=== PATIENT | female | born 1960 | race Caucasian/White ===

== ENCOUNTER 2022-10-17 09:06 | Inpatient (IN) | payer BC ==
[2022-10-17] MEDS ORDERED: Ascorbic Acid 500 mg Chewable Tablet ONE (09:29)
[2022-10-17] MEDS ORDERED: Aspirin 325 MG TAB ONE (09:29)
[2022-10-17 09:55] LABS: #Basophils 0.1 10x3/uL (0.0-0.2); #Eosinphils 0.2 10x3/uL (0.0-0.5); #Monocytes 0.8 10x3/uL (0.0-1.1); #Neutrophils 6.4 10x3/uL (1.5-8.4); %Basophils 0.7 % (0.0-2.0); %Eosinophils 1.9 % (0.0-6.0); %Lymphocytes 13.3 % (18.0-47.0); %Neutrophils 74.6 % (40.0-75.0); Hemoglobin 11.4 g/dL (12.0-15.5); Mean Corpuscular HGB CONC 32.2 g/dL (32.0-36.0); Mean Corpuscular Hemoglobin 30.7 pg (27.0-33.0); Mean Corpuscular Volume 95.4 fl (81.6-98.3); Mean Platelet Volume 12.3 fl (7.4-10.4); Platelet Count 275 10x3/uL (150-450); RBC Distribution Width 13.6 % (11.5-14.5); Red Blood Cell (RBC) Count 3.71 10x6/uL (3.90-5.03); White Blood Cell (WBC) Count 8.5 10x3/uL (3.5-10.5)
[2022-10-17 10:04] LABS: Prothrombin Time 10.8 sec (9.5-12.1)
[2022-10-17 10:14] LABS: ALT (SGPT) 13 U/L (8-55); AST (SGOT) 15 U/L (5-34); Alkaline Phosphatase 89 U/L (40-110); Anion Gap 15 mmol/L (10-20); BUN (Urea Nitrogen) 26 mg/dL (9.8-20.1); Bilirubin, Total 0.4 mg/dL (0.2-1.2); Calc. Creatinine Clearance 0 mL/min (70-130); Calcium 9.6 mg/dL (7.8-10.44); Carbon Dioxide 21 mmol/L (23-31); Chloride 106 mmol/L (98-107); Estimated GFR 29; Globulin 3.2 g/dL (2.4-3.5); Glucose 145 mg/dL (80-115); Potassium 4.4 mmol/L (3.5-5.1); Protein, Total 7.2 g/dL (5.8-8.1); Sodium 138 mmol/L (136-145)
[2022-10-17] MEDS ORDERED: FLU VACC QS2022-23(6MO UP)/PF 60 MCG/0.5 ML SYRINGE IM ONE (10:45)
[2022-10-17] MEDS ORDERED: Phenylephrine 40 MG/NS 250 ML 250 ML ONE (12:38)
[2022-10-17] MEDS ORDERED: Lidocaine 1% (PF) 30 ML VIAL ONE (12:48)
[2022-10-17] MEDS ORDERED: Heparin 10,000 UNITS/ 10 ML VIAL ONE (12:49)
[2022-10-17] MEDS ORDERED: Atropine Sulfate 0.4 mg/1 ml Vial ONE ×2 (13:06→14:01)
[2022-10-17] MEDS ORDERED: PHENYLEPHRINE-NS 100 MCG/ML 10 ML SYRINGE ONE (13:07)
[2022-10-17] MEDS ORDERED: Fentanyl 100 MCG/2 ML VIAL ONE (13:18)
[2022-10-17] MEDS ORDERED: Midazolam HCl 2 mg/2 ml Vial ONE (13:19)
[2022-10-17] MEDS ORDERED: Sodium Chloride 0.9% 200 ML IV PRN (14:46)
[2022-10-17] MEDS ORDERED: Nitroglycerin 0.4 MG TAB (25 Tab Bottle) SL PRN (14:46)
[2022-10-17] MEDS ORDERED: Acetaminophen/Codeine 30-300mg Tablet PO PRN ×2 (14:46)
[2022-10-17] MEDS ORDERED: Sodium Chloride 0.9% 1,000 ML IV SCH (15:00)
[2022-10-17 15:46] VITALS: BMI 37.4
[2022-10-17] MEDS ORDERED: Iopamidol 300 61% 100 ML VIAL FS ONE (15:52)
[2022-10-17] MEDS: Phenylephrine 40 MG/NS 250 ML 40 MG in Premix Bag 1 BAG IVPB SCH (19:00)
[2022-10-17] MEDS: TICAGRELOR 90 MG TABLET PO SCH (20:11)
[2022-10-17] MEDS: Apixaban 2.5 MG TAB PO SCH (20:11)
[2022-10-17] MEDS: Furosemide 20 MG TAB PO SCH (20:13)
[2022-10-17] MEDS: Carvedilol 3.125 MG TAB PO SCH (20:13)
[2022-10-18] MEDS: Phenylephrine 40 MG/NS 250 ML 40 MG in Premix Bag 1 BAG IVPB SCH ×2 (01:49→22:30)
[2022-10-18 04:23] VITALS: TEMP 97.8
[2022-10-18 07:18] LABS: Hemoglobin 9.8 g/dL (12.0-15.5); Mean Corpuscular HGB CONC 31.1 g/dL (32.0-36.0); Mean Corpuscular Hemoglobin 30.5 pg (27.0-33.0); Mean Corpuscular Volume 98.1 fl (81.6-98.3); Mean Platelet Volume 12.6 fl (7.4-10.4); Platelet Count 254 10x3/uL (150-450); RBC Distribution Width 13.9 % (11.5-14.5); Red Blood Cell (RBC) Count 3.21 10x6/uL (3.90-5.03); White Blood Cell (WBC) Count 8.9 10x3/uL (3.5-10.5)
[2022-10-18 07:27] LABS: Anion Gap 15 mmol/L (10-20); BUN (Urea Nitrogen) 30 mg/dL (9.8-20.1); Calc. Creatinine Clearance 46 mL/min (70-130); Calcium 8.5 mg/dL (7.8-10.44); Carbon Dioxide 17 mmol/L (23-31); Chloride 112 mmol/L (98-107); Estimated GFR 27; Glucose 124 mg/dL (80-115); Potassium 4.9 mmol/L (3.5-5.1); Sodium 139 mmol/L (136-145)
[2022-10-18] MEDS: Apixaban 2.5 MG TAB PO SCH ×2 (08:16→20:16)
[2022-10-18] MEDS: Furosemide 20 MG TAB PO SCH (08:16)
[2022-10-18] MEDS: TICAGRELOR 90 MG TABLET PO SCH ×2 (08:16→20:16)
[2022-10-18] MEDS: Lantus 1000 UNITS/10 ML VIAL SC SCH (08:48)
[2022-10-18] MEDS: Carvedilol 3.125 MG TAB PO SCH (08:50)
[2022-10-18 08:51] VITALS: BP 115/68
[2022-10-18] MEDS: Pioglitazone HCl 15 MG TAB PO SCH (08:51)
[2022-10-18] MEDS: Lisinopril 10 MG TAB PO SCH (08:51)
[2022-10-18] MEDS: Sodium Chloride 0.9% 1,000 ML IV SCH ×2 (09:29→20:16)
[2022-10-19] MEDS: Sodium Chloride 0.9% 1,000 ML IV SCH (06:34)
[2022-10-19] MEDS: Pioglitazone HCl 15 MG TAB PO SCH (08:41)
[2022-10-19] MEDS: Lisinopril 10 MG TAB PO SCH (08:42)
[2022-10-19] MEDS: Lantus 1000 UNITS/10 ML VIAL SC SCH (08:42)
[2022-10-19] MEDS: TICAGRELOR 90 MG TABLET PO SCH (08:42)
[2022-10-19] MEDS: Apixaban 2.5 MG TAB PO SCH (08:42)
== END 2022-10-19 12:14 | disposition home or self-care (01) | DRG 35 ==
LOC: CSHSDC 09:06 → CSHIMCU 15:30
PROVIDERS: ADMIT Specialist; ATTEND Specialist
PROC: 037K3DZ Dilation of Right Internal Carotid Artery with Intraluminal Device, Percutaneous Approach (ICD-10-PCS; principal; 2022-10-17)
PROC: B41F1ZZ Fluoroscopy of Right Lower Extremity Arteries using Low Osmolar Contrast (ICD-10-PCS; 2022-10-17)
PROC: B3151ZZ Fluoroscopy of Bilateral Common Carotid Arteries using Low Osmolar Contrast (ICD-10-PCS; 2022-10-17)
DX: I65.23 Occlusion and stenosis of bilateral carotid arteries (principal); T82.856A Stenosis of peripheral vascular stent, initial encounter; E11.51 Type 2 diabetes mellitus with diabetic peripheral angiopathy without gangrene; I95.81 Postprocedural hypotension; R00.1 Bradycardia, unspecified; I25.118 Atherosclerotic heart disease of native coronary artery with other forms of angina pectoris; I87.2 Venous insufficiency (chronic) (peripheral); E78.2 Mixed hyperlipidemia; I70.1 Atherosclerosis of renal artery; E11.22 Type 2 diabetes mellitus with diabetic chronic kidney disease; N18.2 Chronic kidney disease, stage 2 (mild); I12.9 Hypertensive chronic kidney disease with stage 1 through stage 4 chronic kidney disease, or unspecified chronic kidney disease; Z79.4 Long term (current) use of insulin; Z88.8 Allergy status to other drugs, medicaments and biological substances; Z95.820 Peripheral vascular angioplasty status with implants and grafts; Z95.5 Presence of coronary angioplasty implant and graft; Z79.84 Long term (current) use of oral hypoglycemic drugs; Z91.14 Patient's other noncompliance with medication regimen; Z79.899 Other long term (current) drug therapy; Z91.040 Latex allergy status; Z86.73 Personal history of transient ischemic attack (TIA), and cerebral infarction without residual deficits
CPT/HCPCS: 36222; 36227; 36415; 37215; 75710; 80048; 80053; 85025; 85027; 85610; 93005; 93010; 94760; 94762; 99152; 99153; C1760; C1769; C1876; C1884; C1894; J0461; J1644; J2001; J2250; J3010; J7050; Q9967

== ENCOUNTER 2023-02-16 09:25 | Inpatient (IN) | payer BC ==
[2023-02-16] MEDS ORDERED: Phenylephrine 40 MG/NS 250 ML 250 ML ONE (09:56)
[2023-02-16] MEDS ORDERED: Lidocaine 1% (PF) 30 ML VIAL ONE (10:02)
[2023-02-16] MEDS ORDERED: Heparin 10,000 UNITS/ 10 ML VIAL ONE (10:03)
[2023-02-16] MEDS ORDERED: Sodium Chloride 0.9% 1,000 ML ONE (10:04)
[2023-02-16] MEDS ORDERED: fentaNYL 50 mcg/mL 1 mL Vial ONE (10:15)
[2023-02-16] MEDS ORDERED: Midazolam HCl 2 mg/2 ml Vial ONE (10:15)
[2023-02-16] MEDS ORDERED: Ondansetron PF 4 MG/2 ML Vial ONE (10:15)
[2023-02-16] MEDS ORDERED: PHENYLEPHRINE-NS 100 MCG/ML 10 ML SYRINGE ONE (10:17)
[2023-02-16] MEDS ORDERED: Iopamidol 300 61% 100 ML VIAL FS ONE (10:20)
[2023-02-16 10:23] LABS: #Eosinphils 0.1 10x3/uL (0.0-0.5); #Monocytes 0.7 10x3/uL (0.0-1.1); #Neutrophils 4.6 10x3/uL (1.5-8.4); %Basophils 0.6 % (0.0-2.0); %Eosinophils 2.1 % (0.0-6.0); %Lymphocytes 17.8 % (18.0-47.0); %Monocytes 9.9 % (0.0-10.0); Hemoglobin 10.5 g/dL (12.0-15.5); Mean Corpuscular HGB CONC 32.3 g/dL (32.0-36.0); Mean Corpuscular Hemoglobin 30.7 pg (27.0-33.0); Mean Platelet Volume 12.5 fl (7.4-10.4); Platelet Count 276 10x3/uL (150-450); RBC Distribution Width 15.3 % (11.5-14.5); Red Blood Cell (RBC) Count 3.42 10x6/uL (3.90-5.03); White Blood Cell (WBC) Count 6.6 10x3/uL (3.5-10.5)
[2023-02-16 10:32] LABS: PTT 27.5 sec (22.0-33.0); Prothrombin Time 10.9 sec (9.5-12.1)
[2023-02-16 10:37] LABS: ALT (SGPT) 9 U/L (8-55); AST (SGOT) 14 U/L (5-34); Albumin 3.7 g/dL (3.4-4.8); Alkaline Phosphatase 86 U/L (40-110); Anion Gap 17 mmol/L (10-20); BUN (Urea Nitrogen) 29 mg/dL (9.8-20.1); Bilirubin, Total 0.3 mg/dL (0.2-1.2); Calc. Creatinine Clearance 0 mL/min (70-130); Calcium 9.1 mg/dL (7.8-10.44); Carbon Dioxide 22 mmol/L (23-31); Chloride 104 mmol/L (98-107); Estimated GFR 25; Globulin 2.8 g/dL (2.4-3.5); Glucose 138 mg/dL (80-115); Potassium 4.8 mmol/L (3.5-5.1); Protein, Total 6.5 g/dL (5.8-8.1); Sodium 138 mmol/L (136-145)
[2023-02-16] MEDS ORDERED: Sodium Chloride 0.9% 1,000 ML IV SCH (11:00)
[2023-02-16] MEDS ORDERED: Non-Formulary Medication 1 EACH (Evolocumab [Repatha Sureclick] 140 MG/ML Pen.Injctr) SQ SCH (11:15)
[2023-02-16] MEDS ORDERED: Ondansetron ODT 4 MG TAB PO PRN (11:15)
[2023-02-16] MEDS ORDERED: Nitroglycerin 0.4 MG TAB (25 Tab Bottle) SL PRN (11:15)
[2023-02-16] MEDS ORDERED: Acetylcysteine 800 MG/4 ML VIAL ONE (11:55)
[2023-02-16] MEDS ORDERED: Furosemide 40 MG TAB PO PRN (11:55)
[2023-02-16] MEDS ORDERED: Acetylcysteine 800 MG/4 ML VIAL PO SCH (12:00)
[2023-02-16] MEDS ORDERED: Atropine Sulfate 0.4 mg/1 ml Vial ONE ×2 (12:15→13:03)
[2023-02-16] MEDS ORDERED: Morphine 2 MG/ML VIAL SLOW IVP PRN (13:39)
[2023-02-16] MEDS ORDERED: Acetaminophen/Codeine 30-300mg Tablet PO PRN ×2 (13:39→13:40)
[2023-02-16 14:25] VITALS: BMI 38.0
[2023-02-16 14:45] VITALS: TEMP 97.9
[2023-02-16] MEDS: TICAGRELOR 90 MG TABLET PO SCH (20:00)
[2023-02-16] MEDS: Apixaban 2.5 MG TAB PO SCH (20:00)
[2023-02-16] MEDS ORDERED: Phenylephrine 40 MG/NS 250 ML 40 MG in Premix Bag 1 BAG IVPB SCH (22:45)
[2023-02-17 04:08] LABS: #Basophils 0.1 10x3/uL (0.0-0.2); #Eosinphils 0.2 10x3/uL (0.0-0.5); #Monocytes 0.7 10x3/uL (0.0-1.1); %Basophils 0.8 % (0.0-2.0); %Lymphocytes 22.5 % (18.0-47.0); %Monocytes 9.5 % (0.0-10.0); %Neutrophils 64.7 % (40.0-75.0); Hemoglobin 9.3 g/dL (12.0-15.5); Mean Corpuscular Hemoglobin 30.6 pg (27.0-33.0); Mean Corpuscular Volume 95.7 fl (81.6-98.3); Mean Platelet Volume 11.9 fl (7.4-10.4); Platelet Count 276 10x3/uL (150-450); RBC Distribution Width 15.8 % (11.5-14.5); Red Blood Cell (RBC) Count 3.04 10x6/uL (3.90-5.03); White Blood Cell (WBC) Count 7.7 10x3/uL (3.5-10.5)
[2023-02-17 04:22] LABS: ALT (SGPT) 7 U/L (8-55); AST (SGOT) 12 U/L (5-34); Albumin 3.2 g/dL (3.4-4.8); Alkaline Phosphatase 67 U/L (40-110); Anion Gap 13 mmol/L (10-20); BUN (Urea Nitrogen) 27 mg/dL (9.8-20.1); Bilirubin, Total 0.2 mg/dL (0.2-1.2); Calc. Creatinine Clearance 43 mL/min (70-130); Calcium 8.7 mg/dL (7.8-10.44); Carbon Dioxide 23 mmol/L (23-31); Chloride 104 mmol/L (98-107); Estimated GFR 25; Globulin 2.8 g/dL (2.4-3.5); Glucose 121 mg/dL (80-115); Potassium 4.3 mmol/L (3.5-5.1); Sodium 136 mmol/L (136-145)
[2023-02-17] MEDS: Apixaban 2.5 MG TAB PO SCH (07:56)
[2023-02-17] MEDS: TICAGRELOR 90 MG TABLET PO SCH (07:57)
[2023-02-17] MEDS ORDERED: Empagliflozin 25 MG TAB PO SCH (09:00)
[2023-02-17] MEDS ORDERED: Pioglitazone HCl 15 MG TAB PO SCH (09:00)
[2023-02-17] MEDS ORDERED: BEMPEDOIC ACID 180 MG PO SCH (09:00)
[2023-02-17 11:24] VITALS: BP 115/43
== END 2023-02-17 17:28 | disposition home or self-care (01) | DRG 253 ==
LOC: CSHERS 09:25 → CSHERHOLD 11:01 → CSHICU 14:24
PROVIDERS: ADMIT Specialist; ATTEND Specialist
PROC: 037K3DZ Dilation of Right Internal Carotid Artery with Intraluminal Device, Percutaneous Approach (ICD-10-PCS; principal; 2023-02-16)
PROC: B3151ZZ Fluoroscopy of Bilateral Common Carotid Arteries using Low Osmolar Contrast (ICD-10-PCS; 2023-02-16)
PROC: B31N1ZZ Fluoroscopy of Other Upper Arteries using Low Osmolar Contrast (ICD-10-PCS; 2023-02-16)
PROC: B4101ZZ Fluoroscopy of Abdominal Aorta using Low Osmolar Contrast (ICD-10-PCS; 2023-02-16)
DX: T82.858A Stenosis of other vascular prosthetic devices, implants and grafts, initial encounter (principal); G45.9 Transient cerebral ischemic attack, unspecified; E78.5 Hyperlipidemia, unspecified; I10 Essential (primary) hypertension; Y83.8 Other surgical procedures as the cause of abnormal reaction of the patient, or of later complication, without mention of misadventure at the time of the procedure; I25.10 Atherosclerotic heart disease of native coronary artery without angina pectoris; E11.51 Type 2 diabetes mellitus with diabetic peripheral angiopathy without gangrene; E66.9 Obesity, unspecified; F01.50 Vascular dementia, unspecified severity, without behavioral disturbance, psychotic disturbance, mood disturbance, and anxiety; F32.A Depression, unspecified; F41.1 Generalized anxiety disorder; I65.23 Occlusion and stenosis of bilateral carotid arteries; I25.118 Atherosclerotic heart disease of native coronary artery with other forms of angina pectoris; I70.1 Atherosclerosis of renal artery; E11.59 Type 2 diabetes mellitus with other circulatory complications; I87.2 Venous insufficiency (chronic) (peripheral); Z95.1 Presence of aortocoronary bypass graft; Z98.890 Other specified postprocedural states; Z91.040 Latex allergy status; Z88.8 Allergy status to other drugs, medicaments and biological substances; Z90.49 Acquired absence of other specified parts of digestive tract; Z90.710 Acquired absence of both cervix and uterus; Z87.891 Personal history of nicotine dependence; Z68.38 Body mass index [BMI] 38.0-38.9, adult
CPT/HCPCS: 36215; 36216; 36222; 36225; 36228; 36415; 37215; 75625; 75710; 80053; 84484; 85025; 85610; 85730; 93005; 93010; 99152; 99153; C1725; C1757; C1760; C1769; C1876; C1894; J0461; J1644; J2001; J2250; J2405; J3010; J7050; Q9967

== ENCOUNTER 2025-03-31 06:28 | Day surgery (SDC) | payer MEDICARE, OTHER ==
[2025-03-19 11:56] VITALS: BMI 33.5
[2025-03-31] MEDS ORDERED: PROPOFOL 20 ML ONE ×3 (08:25→09:19)
== END 2025-03-31 10:10 | disposition home or self-care (01) ==
LOC: CSHSDC 06:28
PROVIDERS: ATTEND Surgery
PROC: 0DJD8ZZ Inspection of Lower Intestinal Tract, Via Natural or Artificial Opening Endoscopic (ICD-10-PCS; principal; 2025-03-31)
DX: K57.30 Diverticulosis of large intestine without perforation or abscess without bleeding (principal); K21.9 Gastro-esophageal reflux disease without esophagitis; E11.22 Type 2 diabetes mellitus with diabetic chronic kidney disease; N18.9 Chronic kidney disease, unspecified; I25.10 Atherosclerotic heart disease of native coronary artery without angina pectoris; R39.89 Other symptoms and signs involving the genitourinary system; I50.9 Heart failure, unspecified; Z79.01 Long term (current) use of anticoagulants; Z79.899 Other long term (current) drug therapy; Z91.040 Latex allergy status; Z88.8 Allergy status to other drugs, medicaments and biological substances
CPT/HCPCS: 45378; J2704

== ENCOUNTER 2025-05-21 11:43 | Outpatient (CLI) | payer MEDICARE, OTHER ==
[2025-05-21 12:37] LABS: Hematocrit 29.8 % (34.9-44.5); Hemoglobin 9.8 g/dL (12.0-15.5); Mean Corpuscular Hemoglobin 31.5 pg (27.0-33.0); Mean Corpuscular Volume 95.8 fL (81.6-98.3); Platelet Count 192 10x3/uL (150-450); Red Blood Cell (RBC) Count 3.11 10x6/uL (3.90-5.03); White Blood Cell (WBC) Count 6.59 10x3/uL (3.5-10.5)
[2025-05-21 12:53] LABS: Anion Gap 12 mmol/L (10-20); BUN (Urea Nitrogen) 28 mg/dL (9.8-20.1); Calc. Creatinine Clearance 0 mL/min (70-130); Calcium 8.9 mg/dL (7.8-10.44); Carbon Dioxide 25 mmol/L (23-31); Chloride 108 mmol/L (98-107); Glucose 130 mg/dL (80-115); Potassium 4.5 mmol/L (3.5-5.1); Sodium 140 mmol/L (136-145)
== END 2025-05-21 11:44 | disposition home or self-care (01) ==
LOC: CSHLAB 11:43
PROVIDERS: ATTEND Surgery
DX: Z01.818 Encounter for other preprocedural examination (principal); N32.1 Vesicointestinal fistula
CPT/HCPCS: 80048; 85027; 93005; 93010

== ENCOUNTER 2025-05-21 11:45 | Inpatient (IN) | payer MEDICARE, OTHER ==
[2025-06-04] MEDS ORDERED: metroNIDAZOLE 500 MG (100 mL) BAG ONE (08:59)
[2025-06-04] MEDS ORDERED: Bupivacaine HCl 0.5%/Epinephrine 1:200,000/PF 30 ml Vial ONE (09:12)
[2025-06-04] MEDS ORDERED: Phenylephrine 40 MG/NS 250 ML 250 ML ONE (09:32)
[2025-06-04] MEDS ORDERED: HYDROmorphone 0.5 MG/0.5 ML SYRINGE ONE ×2 (09:32→13:00)
[2025-06-04] MEDS ORDERED: PROPOFOL 20 ML ONE ×2 (09:33→15:55)
[2025-06-04] MEDS ORDERED: LevoFLOXacin D5W 500 mg (100 mL) BAG ONE (10:11)
[2025-06-04] MEDS ORDERED: SUGAMMADEX SODIUM 200 MG/2 ML VIAL ONE (10:21)
[2025-06-04] MEDS ORDERED: Lidocaine 2% MPF 10 ML AMP (For Epidural Use) ONE (10:21)
[2025-06-04] MEDS ORDERED: Rocuronium Bromide 10 MG/ML (10ML VIAL) ONE (10:21)
[2025-06-04] MEDS ORDERED: PHENYLEPHRINE-NS 100 MCG/ML 10 ML SYRINGE ONE (11:35)
[2025-06-04] MEDS ORDERED: Sevoflurane 250 ML INH ANEST BOTTLE ONE (15:42)
[2025-06-04] MEDS ORDERED: Ropivacaine 0.2% HCl/PF 40 ML ONE (16:24)
[2025-06-04] MEDS ORDERED: hydrALAZINE 20 MG/ML VIAL SLOW IVP PRN (16:37)
[2025-06-04] MEDS ORDERED: HYDROcodone/Acetaminophen 5/325 mg Tablet PO PRN ×2 (16:41)
[2025-06-04] MEDS ORDERED: HYDROmorphone 0.5 MG/0.5 ML SYR SLOW IVP PRN (16:48)
[2025-06-04] MEDS ORDERED: diphenhydrAMINE 25 MG CAP PO PRN (16:49)
[2025-06-04] MEDS ORDERED: Ondansetron PF 4 MG/2 ML Vial IVP PRN (16:49)
[2025-06-04] MEDS ORDERED: diphenhydrAMINE 50 MG/ML VIAL IVP PRN (16:49)
[2025-06-04] MEDS ORDERED: diphenhydrAMINE 50 MG/ML VIAL IM PRN (16:49)
[2025-06-04] MEDS ORDERED: Communication Order-Pharmacy FS SCH (17:00)
[2025-06-04] MEDS ORDERED: fentaNYL Citrate/PF 55 ML IV SCH (17:00)
[2025-06-04] MEDS: Ketorolac Tromethamine 30 MG (1 mL) VIAL IVP SCH (22:25)
[2025-06-05] MEDS: Famotidine/PF 20 mg/2ml Vial SLOW IVP SCH (00:13)
[2025-06-05] MEDS: Carvedilol 3.125 MG TAB PO SCH ×2 (00:14→08:50)
[2025-06-05] MEDS: Enoxaparin 40 MG (0.4 mL) SYRINGE SC SCH (00:14)
[2025-06-05 06:32] LABS: #Basophils Less than 0.03 10x3/uL (0.0-0.2); #Eosinophils 0.03 10x3/uL (0.0-0.5); #Monocytes 0.68 10x3/uL (0.0-1.1); #Neutrophils 6.91 10x3/uL (1.5-8.4); %Basophils 0.2 % (0.0-2.0); %Eosinophils 0.3 % (0.0-6.0); %Lymphocytes 12.1 % (18.0-47.0); %Monocytes 7.8 % (0.0-10.0); %Neutrophils 79.4 % (40.0-75.0); Hematocrit 26.6 % (34.9-44.5); Hemoglobin 8.5 g/dL (12.0-15.5); Mean Corpuscular Hemoglobin 31.0 pg (27.0-33.0); Mean Corpuscular Volume 97.1 fL (81.6-98.3); Platelet Count 206 10x3/uL (150-450); Red Blood Cell (RBC) Count 2.74 10x6/uL (3.90-5.03); White Blood Cell (WBC) Count 8.71 10x3/uL (3.5-10.5)
[2025-06-05 07:00] LABS: Anion Gap 10 mmol/L (10-20); BUN (Urea Nitrogen) 31 mg/dL (9.8-20.1); Calc. Creatinine Clearance 38 mL/min (70-130); Calcium 8.1 mg/dL (7.8-10.44); Carbon Dioxide 20 mmol/L (23-31); Chloride 113 mmol/L (98-107); Glucose 77 mg/dL (80-115); Potassium 5.2 mmol/L (3.5-5.1); Sodium 138 mmol/L (136-145)
[2025-06-05] MEDS: PNEUMOC 20-VAL CONJ-DIP CRM/PF 0.5 ML SYRINGE IM ONE (08:57)
[2025-06-05] MEDS: Lisinopril 2.5 MG TAB PO SCH (11:45)
[2025-06-05 12:13] VITALS: BMI 11.9
[2025-06-05] MEDS: Enoxaparin 30 MG (0.3 mL) SYRINGE SC SCH (21:17)
[2025-06-06 06:12] LABS: Anion Gap 11 mmol/L (10-20); BUN (Urea Nitrogen) 39 mg/dL (9.8-20.1); Calc. Creatinine Clearance 10 mL/min (70-130); Calcium 7.9 mg/dL (7.8-10.44); Carbon Dioxide 17 mmol/L (23-31); Chloride 111 mmol/L (98-107); Glucose 132 mg/dL (80-115); Potassium 5.0 mmol/L (3.5-5.1); Sodium 134 mmol/L (136-145)
[2025-06-06] MEDS: Famotidine/PF 20 mg/2ml Vial SLOW IVP SCH (08:40)
[2025-06-06] MEDS: TICAGRELOR 90 MG TABLET PO SCH (08:41)
[2025-06-06] MEDS: Ondansetron PF 4 MG/2 ML Vial IVP PRN (12:27)
[2025-06-06 14:33] LABS: Anion Gap 13 mmol/L (10-20); BUN (Urea Nitrogen) 39 mg/dL (9.8-20.1); Calc. Creatinine Clearance 10 mL/min (70-130); Calcium 7.5 mg/dL (7.8-10.44); Carbon Dioxide 15 mmol/L (23-31); Chloride 111 mmol/L (98-107); Glucose 159 mg/dL (80-115); Potassium 4.4 mmol/L (3.5-5.1); Sodium 135 mmol/L (136-145)
[2025-06-06] MEDS: Furosemide 20 MG (2 mL) VIAL SLOW IVP SCH (21:16)
[2025-06-07 06:21] LABS: Anion Gap 11 mmol/L (10-20); BUN (Urea Nitrogen) 36 mg/dL (9.8-20.1); Calc. Creatinine Clearance 11 mL/min (70-130); Calcium 8.1 mg/dL (7.8-10.44); Carbon Dioxide 15 mmol/L (23-31); Chloride 113 mmol/L (98-107); Glucose 152 mg/dL (80-115); Magnesium 1.5 mg/dL (1.6-2.6); Potassium 4.4 mmol/L (3.5-5.1); Sodium 135 mmol/L (136-145)
[2025-06-07] MEDS ORDERED: HYDROcodone/Acetaminophen 5/325 mg Tablet PO PRN (08:06)
[2025-06-07] MEDS: Furosemide 20 MG (2 mL) VIAL SLOW IVP SCH (11:09)
[2025-06-07] MEDS: HYDROcodone/Acetaminophen 5/325 mg Tablet PO PRN (19:40)
[2025-06-08 05:24] LABS: ALT (SGPT) 9 U/L (Less than 34); AST (SGOT) 15 U/L (11-34); Albumin 2.6 g/dL (3.1-4.5); Alkaline Phosphatase 84 U/L (40-110); Anion Gap 10 mmol/L (10-20); BUN (Urea Nitrogen) 35 mg/dL (9.8-20.1); Bilirubin, Total 0.4 mg/dL (0.3-1.2); Calc. Creatinine Clearance 12 mL/min (70-130); Calcium 8.3 mg/dL (7.8-10.44); Carbon Dioxide 16 mmol/L (23-31); Chloride 116 mmol/L (98-107); Globulin 2.7 g/dL (2.4-3.5); Glucose 105 mg/dL (80-115); Magnesium 1.6 mg/dL (1.6-2.6); Potassium 4.6 mmol/L (3.5-5.1); Sodium 137 mmol/L (136-145)
[2025-06-08] MEDS: Furosemide 20 MG (2 mL) VIAL SLOW IVP SCH ×2 (09:53→15:03)
[2025-06-08 16:17] VITALS: BP 149/63; TEMP 97.8
== END 2025-06-08 17:54 | disposition home or self-care (01) | DRG 330 ==
LOC: CSHTELE 06-04 08:56
PROVIDERS: ADMIT Surgery; ATTEND Surgery
PROC: 0DBN4ZZ Excision of Sigmoid Colon, Percutaneous Endoscopic Approach (ICD-10-PCS; principal; 2025-06-04)
PROC: 0DNU4ZZ Release Omentum, Percutaneous Endoscopic Approach (ICD-10-PCS; 2025-06-04)
PROC: 8E0W4CZ Robotic Assisted Procedure of Trunk Region, Percutaneous Endoscopic Approach (ICD-10-PCS; 2025-06-04)
DX: K57.30 Diverticulosis of large intestine without perforation or abscess without bleeding (principal); N17.9 Acute kidney failure, unspecified; N18.4 Chronic kidney disease, stage 4 (severe); N32.1 Vesicointestinal fistula; E11.9 Type 2 diabetes mellitus without complications; I50.9 Heart failure, unspecified; I25.10 Atherosclerotic heart disease of native coronary artery without angina pectoris; Z98.890 Other specified postprocedural states; Z95.1 Presence of aortocoronary bypass graft; Z88.8 Allergy status to other drugs, medicaments and biological substances; Z79.899 Other long term (current) drug therapy; E66.01 Morbid (severe) obesity due to excess calories; Z79.890 Hormone replacement therapy
CPT/HCPCS: 36415; 36416; 80048; 80053; 83735; 84100; 85025; 88307; 88309; 93005; 93010; 94760; 94762; C1889; J1171; J1308; J1650; J1885; J1940; J1956; J2250; J2405; J2704; J2795; J3010; J7030; J7042; S2900